=== PATIENT | male | born 1990 | race Caucasian/White ===

== ENCOUNTER 2020-03-02 20:39 | Emergency (ER) | payer MEDICAID ==
[~2020-03-02] VITALS: Ht 177.8 cm; Wt 81.8 kg
[~2020-03-02 20:39] MED LIST: HYDR-4383 PO; NO HOME MEDS
[2020-03-02 20:45] VITALS: BP 125/84
== END 2020-03-02 22:06 | disposition home or self-care (01) ==
LOC: ER 20:40
DX: S68.011A Complete traumatic metacarpophalangeal amputation of right thumb, initial encounter (principal); Z88.0 Allergy status to penicillin; W26.0XXA Contact with knife, initial encounter; Y93.89 Activity, other specified; Y92.89 Other specified places as the place of occurrence of the external cause; Y99.9 Unspecified external cause status
CPT/HCPCS: 64450; 99284